=== PATIENT | male | born 1985 | race Caucasian/White ===

== ENCOUNTER 2019-03-15 18:59 | Emergency (ER) | payer OTHER ==
[~2019-03-15] VITALS: Ht 172.7 cm; Wt 81.7 kg
[2019-03-15] MEDS ORDERED: CEPH500 PO (19:45)
== END 2019-03-15 20:00 | disposition home or self-care (01) ==
LOC: ER 18:59
DX: S01.01XA Laceration without foreign body of scalp, initial encounter (principal); W22.8XXA Striking against or struck by other objects, initial encounter; F17.200 Nicotine dependence, unspecified, uncomplicated
CPT/HCPCS: 12002; 99282-25; A9270